=== PATIENT | female | born 1980 | race Caucasian/White ===

== ENCOUNTER 2023-08-22 20:49 | Outpatient (CLI) | payer SELFPAY | END 2023-08-22 23:59 | disposition EMS.NT | LOC: EMS 20:49 | DX: S01.511A Laceration without foreign body of lip, initial encounter (principal); S01.21XA Laceration without foreign body of nose, initial encounter; Y04.2XXA Assault by strike against or bumped into by another person, initial encounter; R00.0 Tachycardia, unspecified; F10.90 Alcohol use, unspecified, uncomplicated ==

== ENCOUNTER 2023-08-24 08:00 | Outpatient (CLI) | payer OTHER ==
[2023-08-24 18:33] LABS: ALBUMIN 4.4 g/dL (3.2-5.5); ALBUMIN/GLOBULIN RATIO 1.7 (1.0-2.2); BILIRUBIN,TOTAL 0.6 mg/dL (0.2-1.0); CALCIUM 9.8 mg/dL (8.5-10.3); CREATININE 0.7 mg/dL (0.6-1.3); POTASSIUM 3.6 mmol/L (3.5-4.5)
== END 2023-08-24 23:59 | disposition home or self-care (01) ==
LOC: LAB.N 08:00
PROVIDERS: ATTEND Family Medicine
DX: R79.89 Other specified abnormal findings of blood chemistry (principal)
CPT/HCPCS: 36415; 80053

== ENCOUNTER 2023-11-09 10:07 | Outpatient (CLI) | payer OTHER ==
--- NOTE | 2023-11-11 11:00 | Mammography Report ---
BILATERAL DIGITAL SCREENING MAMMOGRAM 3D/2D WITH AUGMENTATION: 11/09/2023 CLINICAL: Baseline exam. Routine screening. No prior exams were available for comparison. There are scattered areas of fibroglandular density (category b / 25%-50% glandular tissue). Bilateral breast implants are intact. No significant masses, calcifications, or other findings are seen in either breast. IMPRESSION: BENIGN There is no mammographic evidence of malignancy. A 1 year screening mammogram is recommended. Based on the Tyrer Cuzick model (a risk assessment model) the patient's lifetime risk is 5.7% and her 10 year risk is 0.8%. According to the ACR, ACS, and NCCN guidelines, an annual breast MRI exam parvez g with mammogram is recommended if the patient's lifetime risk is 20% or greater. This exam was interpreted at Station ID: [id number]. NOTE: For mammograms, a report in lay terms will be sent to the patient. Approximately 15% of breast malignancies will not be visualized mammographically. In the management of a palpable breast mass, a negative mammogram must not discourage biopsy of a clinically suspicious lesion. Electronically Signed By: Ciara Vieyra M.D., Ph.D. eb/penrad:11/10/2023 09:47:56 ACR BI-RADS Category 2: Benign PARENCHYMAL PATTERN: (A) - The breast(s) demonstrate(s) scattered fibroglandular densities. BI-RADS CATEGORY: (2) - 2 RECOMMENDATION: (ANNUAL) - Recommend routine annual screening mammography. [id number] 1 year screening LATERALITY: (B)
== END 2023-11-09 10:08 | disposition home or self-care (01) ==
LOC: DI.N 10:07
DX: Z12.31 Encounter for screening mammogram for malignant neoplasm of breast (principal)